=== PATIENT | male | born 1945 | race Caucasian/White ===

== ENCOUNTER 2022-05-12 08:19 | Emergency (ER) | payer OTHER ==
--- OUTSIDE RECORDS SUMMARY | 2022-05-12 08:29 | XMS REPORT | Continuity of Care Document ---
:1945 Author Organization [facility] t Address 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 0-27 ity of cancer cancer 00:00: [place] 00 Medical Branch Allergies, Adverse Reactions, Alerts Allergy Allergy Status Severity Reaction(s) Onset Inactive Treating Comm ents Source Name Type Date Date Clinician Sulfamet Propensi Active Rash 2006- Univer s hoxazole ty to 1-22 ity of -Trimeth adverse 00:00: [place] oprim reaction 00 Medical s Branch Social History Social Habit Start Date Stop Date Quantity Comments Source Exposure to 2022-01-09 2022-01-19 Not sure University of SARS-CoV-2 00:00:00 09:06:00 [facility] (event) Branch Tobacco use and 2021-10-09 2021-10-09 Never used Universit y of exposure 00:00:00 00:00:00 [facility] Alcohol intake 2021-10-09 2021-10-09 Ex-drinker University of 00:00:00 00:00:00 (finding) [facility] Sex [birth year] Universit y of 00:00:00 00:00:00 [facility] Smoking Status Start Date Stop Date Source Former smoker 2021-10-09 00:00:00 2021-10-09 00:00:00 Universi ty of [facility] Medications Ordered Filled Start Stop Current Ordering Indication Dosage Frequency Signature Comments Components Source Medication Medication Date Date Medication? Clinician (SIG) Name Name SANDRAL 50 2021- No Take As Uni vers MCG ORAL 5-13 05-13 DIR ORAL ity of TAB 10:55: 00:00 [place] 56 :00 Medical Branch LEVOXYL 50 2021- No Take As Uni vers MCG ORAL 5-13 05-13 DIR ORAL ity of TAB 10:55: 00:00 [place] 56 :00 Medical Branch METHADONE 2021- No 20mg Take 20 mg U nivers HCL 5-13 05-13 by mouth 2 ity of (METHADONE 10:55: 00:00 (two) [place] ORAL) 31 :00 times Medical daily. Branch METHADONE 2021- No 20mg Take 20 mg U nivers HCL 5-13 05-13 by mouth 2 ity of (METHADONE 10:55: 00:00 (two) [place] ORAL) 31 :00 times Medical daily. Branch pregabalin 2021- No pregabalin Univers 75 mg 5-13 05-13 75 mg ity of capsule 10:55: 00:00 capsule [place] 09 :00 Medical Branch pregabalin 2021- No pregabalin Univers 75 mg 5-13 05-13 75 mg ity of capsule 10:55: 00:00 capsule [place] 09 :00 Medical Branch orphenadrin 2021- No orphenadri Univers e 100 mg SR 5- 05-13 ne citrate i ty of tablet 10:54: 00:00 ER 100 mg [place] 57 :00 tablet,ext Medical ended Branch release Take 1 tablet every 12 hours by oral route for 30 days. orphenadrin 2021- No orphenadri Univers e 100 mg SR 01-19 ne citrate i ty of tablet 10:54: 00:00 ER 100 mg [place] 57 :00 tablet,ext Medical ended Branch release Take 1 tablet every 12 hours by oral route for 30 days. cyclobenzap 2021- No cyclobenza Univers rine 10 mg 01-19 niko 10 ity of tablet 10:54: 00:00 mg tablet [place] 48 :00 Take 1 Medical tablet 3 Branch times a day by oral route as needed for 90 days. cyclobenzap 2021- No cyclobenza Univers rine 10 mg 01-19 niko 10 ity of tablet 10:54: 00:00 mg tablet [place] 48 :00 Take 1 Medical tablet 3 Branch times a day by oral route as needed for 90 days. ASPIRIN Yes Take by Univers ORAL 1-31 mouth. ity of 09:18: [address] acetaminoph Yes Take by Uni vers en (TYLENOL 1-31 mouth. ity of ORAL) 09:18: [address] CANDESARTAN Yes Take by Uni vers -HYDROCHLOR 1-31 mouth. ity of OTHIAZID 09:18: [address] MAGNESIUM Yes Take by Unive rs ORAL 1-31 mouth. ity of 09:18: [address] ASPIRIN Yes Take by Univers ORAL 1-31 mouth. ity of 09:18: [address] acetaminoph Yes Take by Uni vers en (TYLENOL 1-31 mouth. ity of ORAL) 09:18: [address] CANDESARTAN Yes Take by Uni vers -HYDROCHLOR 1-31 mouth. ity of OTHIAZID 09:18: [address] MAGNESIUM 0 Yes Take by Unive rs ORAL 1-31 mouth. ity of 09:18: [address] finasteride 2021- No 5mg Take 1 Tab Univers (PROSCAR) 5 01-20 by mouth ity of mg tablet 00:00: 00:00 daily. [place] 00 Medical Branch finasteride No 5mg Take 1 Tab Univers (PROSCAR) 5 5-14 -13 by mouth ity of mg tablet 00:00: 00:00 daily. 00 : Medical Branch maalox/diph No 10mL Take 10 mL Univers enhydrAMINE 919 05-13 by mouth ity of :lidocaine2 00:00: 00:00 as needed [place] % viscous 00 :00 for Pain Medica l 1:1:1 (oral Branch (COMPOUNDED pain). ) suspension maalox/diph No 10mL Take 10 mL Univers enhydrAMINE 05-28 05-13 by mouth ity of :lidocaine2 00:00: 00:00 as needed [place] % viscous 00 :00 for Pain Medica l 1:1:1 (oral Branch (COMPOUNDED pain). ) suspension OMEPRAZOLE No one tab Uni vers 40 MG ORAL 2-13 orally ity of CPDR 00:00: 00:00 twice [place] 00 :00 daily, 30 Medical minutes Branch before meals OMEPRAZOLE No one tab Uni vers 40 MG ORAL 2- 05-13 orally ity of CPDR 00:00: 00:00 twice [place] 00 :00 daily, 30 Medical minutes Branch before meals Vital Signs Vital Name Observation Time Observation Value Comments Source Systolic blood 2022-01-19 15:33:00 136 mm[Hg] [facility] pressure [facility] Diastolic blood 2022-01-19 15:33:00 77 mm[Hg] [facility] Heart rate 2022-01-19 15:32:00 63 /min [facility] Body height 2022-01-19 15:32:00 180.3 cm [facility] Body weight 2022-01-19 15:32:00 87.998 kg [facility] BMI 2022-01-19 15:32:00 27.06 kg/m2 [facility] Oxygen saturation 2022-01-19 15:32:00 97 /min [facility] in Arterial blood Medical Br anch by Pulse oximetry Procedures This patient has no known procedures. Encounters Start End Encounter Admission Attending Care Care Encounter Source Date/Time Date/Time Type Type Clinicians Facility Department ID 2022-04-04 Outpatient [facility] [id number] Common 14:49:02 [facility] 2021-10-04 Outpatient [facility] [id number] Common 13:52:03 [id number] [facility] 2021-10-04 Outpatient Anthony [facility] [id number] Common 13:36:31 Yoana [id number] [facility] 2022-01-19 2022-01-19 Office Jostin [facility] [id number] Univers 10:40:00 11:36:02 Visit [facility] [id number] Amaya [id number] Dylan as ARCHANA?BLEA [id number] [place] alex NUÑEZ [facility] [place] [facility] Results This patient has no known results.
[2022-05-12] MEDS ORDERED: LIDOCAINE 1% W/EPI 1:100,000 MDV 50 ML VIAL ONE (08:57)
[2022-05-12] MEDS ORDERED: BUPIVACAINE 0.5% PF 10 ML VIAL ONE (08:57)
--- NOTE | 2022-05-12 09:26 | RAD REPORT ---
EXAM DESCRIPTION: RAD - Tib Fib Right - 05/12/2022 9:07 am CLINICAL HISTORY: Possible FB COMPARISON: None FINDINGS/IMPRESSION: No acute fracture. No malalignment. No significant focal degenerative changes. No foreign body. Laceration at the level of the mid to distal tibia.
[2022-05-12] MEDS ORDERED: CEPHALEXIN 250 MG CAP ONE (10:05)
--- NOTE | 2022-05-12 10:17 | EDPHYS ---
Physician Documentation [facility] Name: Andrea Hubbard Age: 77 yrs Sex: Male : 1945 Arrival Date: 05/12/2022 Time: 08:20 Bed 20 Private MD: ED Physician Erasmo Elaine HPI: 05/12 08:45 This 77 yrs old Male presents to ER via Ambulatory with complaints of Dog Bite. kdr 08:45 The patient was bitten on the right ankle, by a dog, while playing. Onset: The kdr symptoms/episode began/occurred suddenly, just prior to arrival. Animal information: The animal was reported to appear healthy. Animal's vaccinations are up to date. The animal is known and can be quarantined, Animal control has been notified. Secondary to the bite the patient reports a laceration, that is deep, irregular shaped, ragged, 4 cm(s), pain. Associated signs and symptoms: The patient has no apparent associated signs or symptoms. Severity of symptoms: At their worst the symptoms were mild, in the emergency department the symptoms are unchanged. The patient has not experienced similar symptoms in the past. The patient has not recently seen a physician. 08:50 Dog is well-known to the patient. Patient states that the dog was not specifically kdr trying to bite him but was playing with another dog and accidentally bit his leg.. Historical: - Allergies: 08:31 No Known Allergies; iw - Home Meds: 08:31 None [Active]; iw - PMHx: 08:31 Arthritis; iw - PSHx: 08:31 cardiac stent; iw - Immunization history:: Adult Immunizations Last tetanus immunization: unknown. - Social history:: Smoking status: Patient denies any tobacco usage or history of. ROS: 08:45 Constitutional: Negative for fever, chills, and weight loss, Eyes: Negative for injury, kdr pain, redness, and discharge, ENT: Negative for injury, pain, and discharge, Neck: Negative for injury, pain, and swelling, Cardiovascular: Negative for chest pain, palpitations, and edema, Respiratory: Negative for shortness of breath, cough, wheezing, and pleuritic chest pain, Abdomen/GI: Negative for abdominal pain, nausea, vomiting, diarrhea, and constipation, Back: Negative for injury and pain, : Negative for injury, bleeding, discharge, and swelling, MS/Extremity: Negative for injury and deformity, Neuro: Negative for headache, weakness, numbness, tingling, and seizure activity. Psych: Negative for depression, anxiety, suicide ideation, homicidal ideation, and hallucinations, Allergy/Immunology: Negative for hives, rash, and allergies, Endocrine: Negative for neck swelling, polydipsia, polyuria, polyphagia, and marked weight changes, Hematologic/Lymphatic: Negative for swollen nodes, abnormal bleeding, and unusual bruising. 08:45 Skin: Positive for laceration(s). Exam: 08:45 Constitutional: This is a well developed, well nourished patient who is awake, alert, kdr and in no acute distress. 08:45 Skin: injury, laceration(s), the wound is approximately 4 cm(s), with a depth of 1 cm(s), of the right ankle. Vital Signs: 08:29 BP 178 / 88; Pulse 65; Resp 16; Temp 98.2; Pulse Ox 99% on R/A; iw Laceration: 10:26 Wound Repair of 4cm ( 1.6in ) subcutaneous laceration to right ankle and left leg. kdr Distal neuro/vascular/tendon intact. Anesthesia: Local anesthetic administered with 5 mls of 1% lidocaine w/ Epi, Local anesthetic administered with 1% lidocaine, Local anesthetic administered with 5 mls of 0.5% marcaine. Wound prep: Extensive cleansing by nurse by me, Wound irrigation by nurse by me, Wound explored, Copious irrigation. Skin closed with 5 4-0 Prolene using simple sutures and sterile technique. Dressed with Bacitracin, Kerlix, Viky, non-adherent dressing. Patient tolerated well. MDM: 10:17 Patient medically screened. kdr 10:29 Data reviewed: vital signs, nurses notes. Counseling: I had a detailed discussion with kdr the patient and/or guardian regarding: the historical points, exam findings, and any diagnostic results supporting the discharge/admit diagnosis, lab results, radiology results, the need for outpatient follow up. 05/12 08:49 Order name: Tib Fib Right XRAY; Complete Time: 09:40 kdr 05/12 08:42 Order name: Suture Tray Setup; Complete Time: 08:59 kdr 05/12 08:42 Order name: Dressing - Wound; Complete Time: 08:58 kdr 05/12 08:42 Order name: Gloves, Sterile; Complete Time: 08:58 kdr 05/12 08:42 Order name: Prolene, Sutures: 4-0 Big needle; Complete Time: 08:58 kdr 05/12 08:42 Order name: Setup Suture Tray; Complete Time: 08:58 kdr Administered Medications: 09:52 Drug: Bupivacaine (0.5 %) 5 ml {Note: given by provider.} Volume: 10 ml; Route: mb8 Infiltration; 09:52 Drug: Lidocaine-Epinephrine -1%: (1:100,000) 5 ml {Note: given by provider.} Volume: 20 mb8 ml; Route: Infiltration; 10:17 Drug: KeFLEX (cephalexin) 500 mg Route: PO; mb8 10:35 Follow up: Response: No adverse reaction mb8 10:18 Drug: Tetanus-Diphtheria Toxoid Adult 0.5 ml {Spinning [employer]: [employer] ([employer]). Exp: mb8 12/08/2022. Lot #: [id number]. } Route: IM; Site: right deltoid; 10:35 Follow up: Response: No adverse reaction mb8 Disposition Summary: 05/12/22 10:17 Discharge Ordered Location: Home kdr Problem: new kdr Symptoms: have improved kdr Condition: Stable kdr Diagnosis - Bitten by dog kdr Followup: kdr - With: Private Physician - When: 2 - 3 days - Reason: If symptoms return, Further diagnostic work-up, Recheck today's complaints, Continuance of care, Re-evaluation by your physician Discharge Instructions: - Discharge Summary Sheet kdr - Animal Bite, Adult, [id number] kdr Forms: - Medication Reconciliation Form kdr - Thank You Letter kdr - Antibiotic Education kdr - Prescription Opioid Use kdr Prescriptions: - Cephalexin 500 mg Oral Capsule - take 1 capsule by ORAL route every 6 hours for 7 days; 28 capsule; Refills: 0, kdr Product Selection Permitted - Tylenol-Codeine #3 300 mg-30 mg Oral - take 1 tablet by ORAL route every 4-6 hours As needed; 12 tablet; Refills: 0, kdr Product Selection Permitted Signatures: Dispatcher [employer] Erasmo Aldrich MD MD kdr Aundrea Stallworth RN RN iw Dwayne Muro RN RN mb8 Corrections: (The following items were deleted from the chart) 08:31 08:31 PSHx: None; iw iw
--- NOTE | 2022-05-12 10:17 | ER ---
Nurse's Notes [facility] Name: Andrea Hubbard Age: 77 yrs Sex: Male : 1945 Arrival Date: 05/12/2022 Time: 08:20 Bed 20 Private MD: Diagnosis: Bitten by dog Presentation: 05/12 08:29 Chief complaint: Patient states: I was walking my two dogs and the neighbor dog came iw out and bit me on my right ankle , happened this morning. Coronavirus screen: At this time, the client does not indicate any symptoms associated with coronavirus-19. Ebola Screen: Patient negative for fever greater than or equal to 101.5 degrees Fahrenheit, and additional compatible Ebola Virus Disease symptoms Patient denies exposure to infectious person. Patient denies travel to an Ebola-affected area in the 21 days before illness onset. No symptoms or risks identified at this time. Initial Sepsis Screen: Does the patient meet any 2 criteria? No. Patient's initial sepsis screen is negative. Does the patient have a suspected source of infection? No. Patient's initial sepsis screen is negative. Risk Assessment: Do you want to hurt yourself or someone else? Patient reports no desire to harm self or others. Onset of symptoms was May 12, 2022. 08:29 Method Of Arrival: Ambulatory iw 08:29 Acuity: ZEN 3 Triage Assessment: 10:33 Bite description: bite sustained to right leg by a dog, animal information: mb8 vaccination(s) is current. General: Appears in no apparent distress. uncomfortable, Behavior is calm, cooperative, appropriate for age. Historical: - Allergies: 08:31 No Known Allergies; iw - Home Meds: 08:31 None [Active]; iw - PMHx: 08:31 Arthritis; iw - PSHx: 08:31 cardiac stent; iw - Immunization history:: Adult Immunizations Last tetanus immunization: unknown. - Social history:: Smoking status: Patient denies any tobacco usage or history of. Screenin:01 Abuse screen: Denies threats or abuse. Denies injuries from another. Nutritional mb8 screening: No deficits noted. Tuberculosis screening: No symptoms or risk factors identified. Fall Risk None identified. Assessment: 08:59 Pain: Complains of pain in right ankle. Pain: Pain does not radiate. Pain currently is mb8 6 out of 10 on a pain scale. Quality of pain is described as aching. Derm: Skin is intact, Skin is pink, warm \T\ dry. Wound noted Wound is multiple small puncture wounds to right lower leg from a dog bit. 09:31 Reassessment: No changes from previously documented assessment. Patient and/or family mb8 updated on plan of care and expected duration. Pain level reassessed. Patient is alert, oriented x 3, equal unlabored respirations, skin warm/dry/pink. Vital Signs: 08:29 BP 178 / 88; Pulse 65; Resp 16; Temp 98.2; Pulse Ox 99% on R/A; iw ED Course: 08:20 Patient arrived in ED. as 08:31 Triage completed. iw 08:32 Arm band placed on. iw 08:34 Erasmo Elaine MD is Attending Physician. kdr 08:43 called the [facility] to report the dog bite/ per Olga patient is to call the [facility] sheriff's office when he get's home and they will send the occupational medicine officer over to make a report. 08:45 Dwayne Muro RN is Primary Nurse. mb8 08:50 Wound care: to Dog bite located on right leg and right ankle was cleaned with irrigated mb8 with Patient tolerated well. 08:55 X-ray(s) taken. mb8 09:01 Awaiting radiology results. mb8 09:01 Patient has correct armband on for positive identification. mb8 09:01 No provider procedures requiring assistance completed. Patient did not have IV access mb8 during this emergency room visit. 09:09 Tib Fib Right XRAY In Process Unspecified. 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 Exp: mb8 12/08/2022. Lot #: [id number]. } Route: IM; Site: right deltoid; 10:35 Follow up: Response: No adverse reaction david Medication: 10:34 Vaccine Information Statement (VIS) provided today. Questions and/or concerns david addressed. VIS edition date: May 12, 2022. Outcome: 10:17 Discharge ordered by . kdr 10:34 Discharged to home ambulatory, with family. mbTima 10:34 Condition: stable 10:34 Discharge instructions given to patient, Instructed on discharge instructions, follow up and referral plans. no drinking with medication, no driving heavy equipment, medication usage, wound care, Demonstrated understanding of instructions, follow-up care, medications, wound care, Prescriptions given X 1. 10:35 Patient left the ED. david Signatures: Dispatcher [employer] EDMS Erasmo Elaine MD MD kdr Martinez, Amelia as Williams, Irene, JOSE RN iw Pily Lee Michael, RN RN mb8 Corrections: (The following items were deleted from the chart) 08:31 08:31 PSHx: None; [facility]
[2022-05-12 10:43] VITALS: BP 178/88; TEMP 98.2; O2SAT 99
== END 2022-05-12 10:35 | disposition home or self-care (01) ==
LOC: ER 08:19
PROC: 0JQN0ZZ Repair Right Lower Leg Subcutaneous Tissue and Fascia, Open Approach (ICD-10-PCS; principal; 2022-05-12)
DX: S91.011A Laceration without foreign body, right ankle, initial encounter (principal); W54.0XXA Bitten by dog, initial encounter; Z23 Encounter for immunization; Z95.818 Presence of other cardiac implants and grafts
CPT/HCPCS: 90471; 99284

== ENCOUNTER 2022-10-14 17:36 | Observation (INO) | payer OTHER ==
--- OUTSIDE RECORDS SUMMARY | 2022-10-14 17:38 | XMS REPORT | Continuity of Care Document ---
:1945 Author Organization [facility] t Address [address] [place] [address] Care Team Providers Name Role Phone Ricardo Adi Amezcua Primary Care Physician Yoana Cruz Attending Clinician Unavailable TRAY FRANKEL Attending Clinician Unavailable TRAY FRANKEL Attending Clinician Unavailable Tray Frankel MD Attending Clinician MICHELLE PATTERSON Attending Clinician Unavailable Leonardo Davidson MD, [place] Attending Clinician GRACE HAYDEN Attending Clinician Unavailable Grace Hayden MD Attending Clinician Doctor Unassigned, [place] Attending Clinician Unavailable TRAY FRANKEL Admitting Clinician Unavailable Payers Payer Name Policy Type Policy Number Effective Date Expiration Date S [facility] [id number] 2021 [facility] 00:00:00 PPO Problems Condition Condition Condition Status Onset Resolution Last Treating Co mments Source Name Details Category Date Date Treatment Clinician Date 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 0-27 ity of cancer cancer 00:00: [place] 00 Medical Branch Allergies, Adverse Reactions, Alerts Allergy Allergy Status Severity Reaction(s) Onset Inactive Treating Comm ents Source Name Type Date Date Clinician Estefania Bell Active Rash Univer s hoxazole ty to 09-30 ity of -[place] adverse 00:00: [place] oprim reaction 00 Medical s Branch Social History Social Habit Start Date Stop Date Quantity Comments Source Exposure to 2022-01-09 2022-01-19 Not sure [facility] SARS-CoV-2 00:00:00 09:06:00 [facility] (event) Branch Tobacco use and 2021-10-09 2021-10-09 Never used Universit y of exposure 00:00:00 [facility] Alcohol intake 2021-10-09 2021-10-09 Ex-drinker [facility] 00:00:00 00:00:00 [facility]finding[facility] Sex Ass[birth year] Universit y of 00:00:00 [facility]:00:00 [facility] Smoking Status Start Date Stop Date Source Former smoker 2021-10-09 00:00:00 2021-10-09 00:00:00 [facility] Medications Ordered Filled Start Stop Current Ordering Indication Dosage Frequency Signature Comments Components Source Medication Medication Date Date Medication? Clinician (SIG) Name Name LEVOXYL 50 2021- No Take As Uni vers MCG ORAL 5-13 05-13 DIR ORAL ity of TAB 10:55: 00:00 [place] 56 :00 Medical Branch LEVOXYL 50 2021- No Take As Uni vers MCG ORAL 5-13 05-13 DIR ORAL ity of TAB 10:55: 00:00 [place] 56 :00 Medical Branch METHADONE 2021- No 20mg Take 20 mg U nivers HCL 5-13 05-13 by mouth 2 ity of (METHADONE 10:55: 00:00 (two) [place] ORAL) 31 :00 times Medical daily. Branch METHADONE 2021- No 20mg Take 20 mg U nivers HCL 5-13 05-13 by mouth 2 ity of (METHADONE 10:55: 00:00 (two) [place] ORAL) 31 :00 times Medical daily. Branch pregabalin 2021- No pregabalin Univers 75 mg 5-13 - 75 mg ity of capsule 10:55: 00:00 capsule [place] 09 :00 Medical Branch pregabalin 2021- No pregabalin Univers 75 mg 5-13 - 75 mg ity of capsule 10:55: 00:00 capsule [place] 09 :00 Medical Branch orphenadrin 2021- No orphenadri Univers e 100 mg SR 01-19 ne citrate i ty of tablet 10:54: 00:00 ER 100 mg [place] 57 :00 tablet,ext Medical ended Branch release Take 1 tablet every 12 hours by oral route for 30 days. orphenadrin 2021- No orphenadri Univers e 100 mg SR -01-19 ne citrate i ty of tablet 10:54: 00:00 ER 100 mg [place] 57 :00 tablet,ext Medical ended Branch release Take 1 tablet every 12 hours by oral route for 30 days. cyclobenzap 2021- No cyclobenza Univers rine 10 mg -01-19 niko 10 ity of tablet 10:54: 00:00 mg tablet [place] 48 :00 Take 1 Medical tablet 3 Branch times a day by oral route as needed for 90 days. cyclobenzap 2021- No cyclobenza Univers rine 10 mg -01-19 niko 10 ity of tablet 10:54: 00:00 mg tablet [place] 48 :00 Take 1 Medical tablet 3 Branch times a day by oral route as needed for 90 days. ASPIRIN Yes Take by Univers ORAL 1-31 mouth. ity of 09:18: [address] acetaminoph Yes Take by Uni vers en (TYLENOL 1-31 mouth. ity of ORAL) 09:18: [address] CANDESARTAN Yes Take by Uni vers -HYDROCHLOR 1-31 mouth. ity of OTHIAZID 09:18: [address] MAGNESIUM 0 Yes Take by Unive rs ORAL 1-31 mouth. ity of 09:18: [address] ASPIRIN 0 Yes Take by Univers ORAL 1-31 mouth. ity of 09:18: [address] acetaminoph Yes Take by Uni vers en (TYLENOL 1-31 mouth. ity of ORAL) 09:18: [address] CANDESARTAN Yes Take by Uni vers -HYDROCHLOR 1-31 mouth. ity of OTHIAZID 09:18: [place] [address] [facility] [place] MAGNESIUM Yes Take by Unive rs ORAL -31 mouth. ity of 09:18: [place] [address] [facility] [place] finasteride 2021- No 5mg Take 1 Tab Univers (PROSCAR) 5 5-14 05-13 by mouth ity of mg tablet 00:00: 00:00 daily. [place] 00 : Medical Branch finasteride 2021- No 5mg Take 1 Tab Univers (PROSCAR) 5 5-14 05-13 by mouth ity of mg tablet 00:00: 00:00 daily. [place] 00 :00 Medical Branch maalox/diph 2021- No 10mL Take 10 mL Univers enhydrAMINE 9-19 05-13 by mouth ity of :lidocaine2 00:00: 00:00 as needed [place] % viscous 00 :00 for Pain Medica l 1:1:1 (oral Branch (COMPOUNDED pain). ) suspension maalox/diph 2021- No 10mL Take 10 mL Univers enhydrAMINE 9-19 05-13 by mouth ity of :lidocaine2 00:00: 00:00 as needed [place] % viscous 00 :00 for Pain Medica l 1:1:1 (oral Branch (COMPOUNDED pain). ) suspension OMEPRAZOLE 2021- No one tab Uni vers 40 MG ORAL 2-08 05-13 orally ity of CPDR 00:00: 00:00 twice [place] 00 :00 daily, 30 Medical minutes Branch before meals OMEPRAZOLE 2021- No one tab Uni vers 40 MG ORAL 2-08 05-13 orally ity of CPDR 00:00: 00:00 twice [place] 00 :00 daily, 30 Medical minutes Branch before meals Vital Signs Vital Name Observation Time Observation Value Comments Source Systolic blood 2022-01-19 15:33:00 136 mm[Hg] Univer sity [facility] Diastolic blood 2022-01-19 15:33:00 77 [facility]Hg[facility] pressure [facility] Heart rate 2022-01-19 15:32:00 63 /min [facility] Body height 2022-01-19 15:32:00 180.3 cm [facility] Body weight 2022-01-19 15:32:00 87.998 kg [facility] BMI 2022-01-19 15:32:00 27.06 kg/m2 [facility] Oxygen saturation 2022-01-19 15:32:00 97 /min [facility] in Arterial blood Medical Br anch by Pulse oximetry Procedures This patient has no known procedures. Encounters Start End Encounter Admission Attending Care Care Encounter Source Date/Time Date/Time Type Type Clinicians Facility Department ID 2022-04-04 Outpatient [facility] [id number] Common 14:49:02 [id number] [facility] 2021-10-04 Outpatient [facility] [id number] Common 13:52:03 [id number] [facility] 2021-10-04 Outpatient Anthony [facility] [id number] Common 13:36:31 Yoana 7[address]82 [facility] 2022-01-19 2022-01-19 Outpatient TRAY PRICE [facility] [id number] [facility] 10:40:00 11:36:02 TRAY FRANKEL [facility] 2022-01-19 2022-01-19 [facility] [id number] [facility] 10:40:00 11:36:02 Visit [facility] [id number] [facility] [id number] Dylan as ARCHANA?BLEA [id number] [address] MEDICAL OFFICE BUILDING 2022-01-19 2022-01-19 Outpatient TRAY PRICE [facility] [id number] Univers 10:40:00 10:40:00 TRAY FRANKEL [facility] 2022-01-08 2022-01-08 Outpatient Agueda PATTERSON [facility] [id number] Univers 09:40:23 23:59:00 MICHELLE [facility] 2022-01-08 2022-01-08 [facility] [id number] Univers 09:40:23 23:59:00 [facility] [id number] [id number] [id number] [facility] 038 Branch OFFICE BUILDING 2021-11-27 2021-11-27 Patient VLAD FrankelIT [id number] Univers 00:00:00 00:00:00 Secure Msg Tray [facility] [id number] ity of [id number] [id number] [place] [id number] [place] 2021-11-21 2021-11-21 Outpatient Agueda HAYDEN [facility] [id number] Univers 00:00:00 00:00:00 GRACE [facility] 2021-11-17 2021-11-17 Outpatient TRAY PRICE [facility] [id number] Univers 09:20:00 09:57:43 TRAY FRANKEL stella [facility] 2021-11-13 2021-11-13 Outpatient TRAY PRICE [facility] [id number] Univers 11:36:07 23:59:00 TRAY FRANKEL stella [facility] 2021-11-13 2021-11-13 [facility] [id number] Univers 11:30:00 23:59:00 Encounter Tray [place] [id number] ity of [place] [id number] [place] [id number] [facility] 804 Branch 2021-11-06 2021-11-06 Patient ISA Frankel [id number] Univers 00:00:00 00:00:00 Secure Msg Tray [facility] [id number] ity of [id number] [id number] [place] [id number] [place] 2021-10-25 2021-10-25 Patient Jostin [facility] [id number] Univers 00:00:00 00:00:00 Secure Msg Tray [facility] [id number] ity of [place] [id number] Dylan as ARCHANA?BLEA [id number] Il mckayid JACKELINE[address] OFFICE [facility] 2021-10-18 2021-10-18 [facility] [id number] Univers 13:57:26 23:59:00 Encounter Grace ESTESTON [id number] [facility] [id number] [id number] [address] 2021-10-18 2021-10-18 [facility] [id number] Univers 13:57:06 23:59:00 Encounter Grace BRADEN [id number] [facility] [id number] [id number] [address] 2021-10-18 2021-10-18 Outpatient R [facility] [id number] Univers 13:57:06 23:59:00 GRACE ity o [facility] 2021-10-10 2021-10-10 Office Tray Frankel [facility] [id number] Univers 10:00:00 11:15:52 Visit Grace Hayden [facility] [id number] ity of [place] [id number] Dylan as ARCHANA?BLEA [id number] [facility] JACKELINE[address] OFFICE [facility] 2021-10-10 2021-10-10 Outpatient R [facility] [id number] Univers 10:00:00 [facility]:15:[facility] 2021-10-10 2021-10-10 Outpatient R [facility] [id number] Univers 10:00:00 10:00:00 QIAYURY ity o [facility] 2021-10-10 2021-10-10 Orders Doctor SHAVER [id number] Univers 00:00:00 00:00:00 Only Unassigned, RESHMA [id number] ity of [place] [facility] [id number] Dylan as [id number] [facility] 009 Branch 2021-10-09 2021-10-09 Outpatient R [facility] [id number] Univers 08:30:00 23:59:00 [facility]ACE [facility] 2021-10-09 2021-10-09 Hospital [facility] [id number] Univers 08:30:00 23:59:00 Encounter Grace BRADEN [id number] ity [id number] [id number] Il dical NAL 846 [facility] 2021-10-09 2021-10-09 Office [facility] [id number] Univers 09:40:00 10:00:00 Visit Grace BRADEN [id number] ity [place] [id number] [id number] Il dical NAL 059 [facility] 2021-10-09 2021-10-09 Outpatient R [facility] [id number] Univers 09:40:00 09:40:00 [facility]ACE [facility] 2021-10-09 2021-10-09 Orders Doctor SHAVER 1.2.840.114 [id number] Univers 00:00:00 00:00:00 Only Unassigned, RESHMA [id number] ity of [place] [facility] [id number] Dylan as [id number] [place] [address] Branch Results This patient has no known results.
--- NOTE | 2022-10-14 18:04 | RAD REPORT ---
EXAM DESCRIPTION: CT - Ct Stroke Brain Wo Cont - 10/14/2022 5:53 pm CLINICAL HISTORY: cva COMPARISON: none TECHNIQUE: Computed axial tomography of the head was obtained. All CT scans are performed using dose optimization technique as appropriate and may include automated exposure control or mA/KV adjustment according to patient size. FINDINGS: An intracranial bleed is not seen . The ventricles are normal in caliber. No extra-axial fluid collection is noted. No significant hypodensity within the brain Fluid within the sinuses/ mastoids is not seen. IMPRESSION: No acute intracranial abnormality is seen.If patient's symptoms persist MRI of the brai n would be recommended. Regino of the emergency room was notified at 5:47 p.m. October 14, 2022
[2022-10-14 18:11] LABS: Absolute Lymphocytes (CBC) 1.7 K/uL (0.7-4.9); Hematocrit 41.4 % (39.6-49.0); Lymphocytes % 21.9 % (15.3-44.8); MCV 94.3 fL (80-100); MPV 10.7 fL (7.6-11.3); RBC Red Blood Cell Count 4.39 M/uL (4.33-5.43)
--- NOTE | 2022-10-14 18:17 | EDPHYS ---
Physician Documentation [facility] Name: Andrea Hubbard Age: 77 yrs Sex: Male : 1945 Arrival Date: 10/14/2022 Time: 17:37 Bed 17 Private MD: ED Physician Erasmo Elaine HPI: 10/14 19:12 This 77 yrs old Male presents to ER via EMS with complaints of S/S of Possible Stroke. kdr 19:13 Patient was brought to the emergency department by EMS for possible stroke. He was kdr sitting with friends at a picnic table and all of a sudden he collapsed and became poorly responsive. Friends or relatives state that he was slumping over and he may have had some right facial droop and altered speech. This lasted for a few minutes and then he slowly regained his baseline. EMS states by the time they arrived he was back to his baseline. Patient presents to the ED at baseline without any focal complaints other than chronic total body pain. Onset: The symptoms/episode began/occurred suddenly, just prior to arrival. Severity of symptoms: At their worst the symptoms were incapacitating in the emergency department the symptoms have resolved. The patient has not experienced similar symptoms in the past. The patient has not recently seen a physician. Historical: - Allergies: 18:08 No Known Allergies; ld1 - PMHx: 18:08 Arthritis; ld1 - PSHx: 18:08 cardiac stent; ld1 - Immunization history:: Adult Immunizations up to date, Client reports receiving the 2nd dose of the Covid vaccine. - Social history:: Smoking status: Patient denies any tobacco usage or history of. Patient/guardian denies using alcohol. ROS: 19:13 Constitutional: Negative for fever, chills, and weight loss, Eyes: Negative for injury, kdr pain, redness, and discharge, ENT: Negative for injury, pain, and discharge, Neck: Negative for injury, pain, and swelling, Cardiovascular: Negative for chest pain, palpitations, and edema, Respiratory: Negative for shortness of breath, cough, wheezing, and pleuritic chest pain, Abdomen/GI: Negative for abdominal pain, nausea, vomiting, diarrhea, and constipation, Back: Negative for injury and pain, : Negative for injury, bleeding, discharge, and swelling, MS/Extremity: Negative for injury and deformity, Skin: Negative for injury, rash, and discoloration, Psych: Negative for depression, anxiety, suicide ideation, homicidal ideation, and hallucinations, Allergy/Immunology: Negative for hives, rash, and allergies, Endocrine: Negative for neck swelling, polydipsia, polyuria, polyphagia, and marked weight changes, Hematologic/Lymphatic: Negative for swollen nodes, abnormal bleeding, and unusual bruising. 19:13 Neuro: Positive for altered mental status, dizziness, gait disturbance, speech changes, weakness. Exam: 19:13 Constitutional: This is a well developed, well nourished patient who is awake, alert, kdr and in no acute distress. Head/Face: Normocephalic, atraumatic. Eyes: Pupils equal round and reactive to light, extra-ocular motions intact. Lids and lashes normal. Conjunctiva and sclera are non-icteric and not injected. Cornea within normal limits. Periorbital areas with no swelling, redness, or edema. Neck: Trachea midline, no thyromegaly or masses palpated, and no cervical lymphadenopathy. Supple, full range of motion without nuchal rigidity, or vertebral point tenderness. No Meningismus. Chest/axilla: Normal chest wall appearance and motion. Nontender with no deformity. No lesions are appreciated. Cardiovascular: Regular rate and rhythm with a normal S1 and S2. No gallops, murmurs, or rubs. Normal PMI, no JVD. No pulse deficits. Respiratory: Lungs have equal breath sounds bilaterally, clear to auscultation and percussion. No rales, rhonchi or wheezes noted. No increased work of breathing, no retractions or nasal flaring. Abdomen/GI: Soft, non-tender, with normal bowel sounds. No distension or tympany. No guarding or rebound. No evidence of tenderness throughout. Back: No spinal tenderness. No costovertebral tenderness. Full range of motion. Skin: Warm, dry with normal turgor. Normal color with no rashes, no lesions, and no evidence of cellulitis. MS/ Extremity: Pulses equal, no cyanosis. Neurovascular intact. Full, normal range of motion. Psych: Awake, alert, with orientation to person, place and time. Behavior, mood, and affect are within normal limits. 19:13 Neuro: Orientation: is normal, Mentation: is normal, Memory: is normal, Motor: is normal, Sensation: is normal. Vital Signs: 18:04 BP 161 / 92; Pulse 65; Resp 22; Temp 97.6(O); Pulse Ox 97% on R/A; Height 5 ft. 8 in. ld1 (172.72 cm); Pain 8/10; 19:00 BP 164 / 74; Pulse 70; Resp 18; Pulse Ox 100% on R/A; Weight 92.99 kg; ld1 19:35 BP 169 / 88; Pulse 82; Resp 17; Pulse Ox 99% on R/A; lg3 02 03:59 BP 143 / 89 Supine; Pulse 94; ke1 03:59 BP 137 / 105 Sitting; Pulse 101; ke1 04:00 BP 113 / 76 Standing; Pulse 124; ke1 10/14 19:00 Body Mass Index 31.17 (92.99 kg, 172.72 cm) ld1 NIH Stroke Scale Scores: 10/14 18:10 NIHSS Score: 0 ld1 19:00 NIHSS Score: 0 ld1 19:36 NIHSS Score: 0 lg3 MDM: 18:17 Patient medically screened. kdr 19:13 Data reviewed: vital signs, nurses notes, lab test result(s), radiologic studies. kdr Management of patient was discussed with the following: Hospitalist: Ganesh Hensley. 19:24 ED course: Patient states that he has chronic pain for more than 10 years and that he kdr cannot get comfortable in the hospital and is insisting that he go home. I offered to try to address his pain which is reflected in the orders that I just put in the chart. If that is not satisfactory then he may decide to go AGAINST MEDICAL ADVICE. I have informed the hospitalist and the attending emergency physician of the current status the chart and the patient and that he is technically admitted. The family certainly expressed some concern about him leaving the hospital and we all attempted to convince the patient that an overnight stay would be beneficial given that this was either a cardiac event or a neurologic event in either case he warrants admission and an MRI and further evaluation. In any case the patient was most insisted on leaving and his final disposition if other than the admission to the hospitalist service will be determined later this evening.. 10/14 17:44 Order name: Basic Metabolic Panel; Complete Time: 18:59 kdr 10/14 17:44 Order name: CBC with Diff; Complete Time: 18:59 kdr 02/ 17:44 Order name: Hepatic Function; Complete Time: 18:59 kdr 02 17:44 Order name: High Sensitivity Troponin; Complete Time: 18:59 kdr 02 17:44 Order name: Magnesium; Complete Time: 18:59 kdr 02 17:44 Order name: Protime (+inr); Complete Time: 18:59 kdr 02 17:44 Order name: Ptt, Activated; Complete Time: 18:59 kdr 02 17:46 Order name: SARS RAPID; Complete Time: 18:59 kj1 10/14 18:14 Order name: ETOH Level; Complete Time: 18:59 kdr 02 18:15 Order name: Glucose, Ancillary Testing; Complete Time: 18:59 EDMS 02 23:38 Order name: Troponin High Sensitivity EDMS 02 05:55 Order name: Basic Metabolic Panel EDMS 02 05:55 Order name: Troponin High Sensitivity EDMS 02 05:55 Order name: T4 Free EDMS 10/14 17:44 Order name: CT Stroke Brain w/o Contrast; Complete Time: 18:59 iw 10/14 17:44 Order name: Stroke CXR 1 View; Complete Time: 18:59 kdr 10/14 17:44 Order name: EKG; Complete Time: 17:45 kdr 10/14 17:44 Order name: Accucheck; Complete Time: 18:12 kdr 10/14 17:44 Order name: Cardiac monitoring; Complete Time: 18:03 kdr 02 17:44 Order name: EKG - Nurse/Tech; Complete Time: 18:12 kdr 10/14 17:44 Order name: IV Saline Lock; Complete Time: 18:03 kdr 02 17:44 Order name: Labs collected and sent; Complete Time: 18:03 kdr 02 17:44 Order name: NPO; Complete Time: 18:12 kdr 02 05:55 Order name: Thyroid Stimulating Hormone EDMS 10/15 07:30 Order name: CBC with Automated Diff EDMS 10/15 09:20 Order name: US EDMS 10/14 17:44 Order name: O2 Per Protocol; Complete Time: 18:03 kdr 10/14 17:44 Order name: O2 Sat Monitoring; Complete Time: 18:03 kdr 10/14 17:44 Order name: Stroke Swallow Screen; Complete Time: 18:12 kdr 10/14 20:55 Order name: Orthostatics; Complete Time: 04:53 la1 Administered Medications: 19:35 Drug: Ativan (LORazepam) 1 mg Route: IVP; Site: right antecubital; lg3 19:35 Drug: fentaNYL (PF) 25 mcg Route: IVP; Site: right antecubital; lg3 19:35 Drug: Neurontin (gabapentin) 300 mg Route: PO; lg3 Point of Care Testing: Blood Glucose: 17:49 Blood Glucose: 97 mg/dL; ld1 Ranges: Critical Glucose Levels:Adult <50 mg/dl or >400 mg/dl <40 mg/dl or >180 mg/dl Disposition Summary: 10/14/22 18:17 Hospitalization Ordered Hospitalization Status: Observation kdr Condition: Fair kdr Problem: new kdr Symptoms: are resolved kdr Bed/Room Type: Standard kdr Provider: Juan Carlos Boss(10/14/22 20:55) la1 Location: [facility] ER HOLD(10/14/22 21:07) cg Room Assignment: ERHOLD-(10/14/22 21:07) cg Diagnosis - Slurred speech kdr - Altered mental status, unspecified kdr Forms: - Medication Reconciliation Form kdr - SBAR form kdr NIH Stroke Scale - NIH Stroke Score Date: 10/14/2022 Time: 18:10 Total Score = 0 1a. Level of Consciousness (LOC) - 0(Alert) 1b. Level of Consciousness (LOC) (Month \T\ Age) - 0(Both) 1c. LOC Commands (Open \T\ Closes Eyes/Metal Roaster) - 0(Both) 2. Best Gaze (Lateral Gaze Paresis) - 0(Normal) 3. Visual Field Loss - 0(No visual loss) 4. Facial Palsy - 0(Normal) 5a. Left Arm: Motor (10-second hold) - 0(No drift) 5b. Right Arm: Motor (10-second hold) - 0(No drift) 6a. Left Leg: Motor (5-second hold - always test supine) - 0(No drift) 6b. Right Leg: Motor (5-second hold - always test supine) - 0(No drift) 7. Limb Ataxia (finger/nose \T\ heel/al - test with eyes open) - 0(Absent) 8. Sensory Loss (pinprick arms/legs/face) - 0(Normal) 9. Best Language: Aphasia (description/naming/reading) - 0(No aphasia) 10. Dysarthria (speech clarity - read or repeat words) - 0(Normal) 11. Extinction and Inattention (visual/tactile/auditory/spatial/personal) - 0(No abnormality) Initials: ld1 NIH Stroke Scale - NIH Stroke Score Date: 10/14/2022 Time: 19:00 Total Score = 0 1a. Level of Consciousness (LOC) - 0(Alert) 1b. Level of Consciousness (LOC) (Month \T\ Age) - 0(Both) 1c. LOC Commands (Open \T\ Closes Eyes/Metal Roaster) - 0(Both) 2. Best Gaze (Lateral Gaze Paresis) - 0(Normal) 3. Visual Field Loss - 0(No visual loss) 4. Facial Palsy - 0(Normal) 5a. Left Arm: Motor (10-second hold) - 0(No drift) 5b. Right Arm: Motor (10-second hold) - 0(No drift) 6a. Left Leg: Motor (5-second hold - always test supine) - 0(No drift) 6b. Right Leg: Motor (5-second hold - always test supine) - 0(No drift) 7. Limb Ataxia (finger/nose \T\ heel/al - test with eyes open) - 0(Absent) 8. Sensory Loss (pinprick arms/legs/face) - 0(Normal) 9. Best Language: Aphasia (description/naming/reading) - 0(No aphasia) 10. Dysarthria (speech clarity - read or repeat words) - 0(Normal) 11. Extinction and Inattention (visual/tactile/auditory/spatial/personal) - 0(No abnormality) Initials: ld1 NIH Stroke Scale - NIH Stroke Score Date: 10/14/2022 Time: 19:36 Total Score = 0 1a. Level of Consciousness (LOC) - 0(Alert) 1b. Level of Consciousness (LOC) (Month \T\ Age) - 0(Both) 1c. LOC Commands (Open \T\ Closes Eyes/Metal Roaster) - 0(Both) 2. Best Gaze (Lateral Gaze Paresis) - 0(Normal) 3. Visual Field Loss - 0(No visual loss) 4. Facial Palsy - 0(Normal) 5a. Left Arm: Motor (10-second hold) - 0(No drift) 5b. Right Arm: Motor (10-second hold) - 0(No drift) 6a. Left Leg: Motor (5-second hold - always test supine) - 0(No drift) 6b. Right Leg: Motor (5-second hold - always test supine) - 0(No drift) 7. Limb Ataxia (finger/nose \T\ heel/al - test with eyes open) - 0(Absent) 8. Sensory Loss (pinprick arms/legs/face) - 0(Normal) 9. Best Language: Aphasia (description/naming/reading) - 0(No aphasia) 10. Dysarthria (speech clarity - read or repeat words) - 0(Normal) 11. Extinction and Inattention (visual/tactile/auditory/spatial/personal) - 0(No abnormality) Initials: lg3 Signatures: Dispatcher [employer] EDMS Erasmo Elaine MD MD kdr Ganesh Hensley, WOOD MODEL MAKER-C WOOD MODEL MAKER-Cla1 Maite Vu, RN RN cg Edie Sherwood, JOSE GARCIA lg3 Nancy Giordano, JOSE RN ld1 Corrections: (The following items were deleted from the chart) 17:50 17:45 CT-STROKE BRAIN W/O CONTRAST+[id number].BRZ ordered. EDMS EDMS 20:55 18:17 Irina Bishop [facility] la1 21:07 18:17 Telemetry/MedSurg (observation) [facility] 21:07 18:17 [facility]
--- NOTE | 2022-10-14 18:17 | ER ---
Nurse's Notes [facility] Name: Andrea Hubbard Age: 77 yrs Sex: Male : 1945 Arrival Date: 10/14/2022 Time: 17:37 Bed 17 Private MD: Diagnosis: Slurred speech;Altered mental status, unspecified Presentation: 10/14 18:04 Chief complaint: EMS states: toned out to patient home for generalized weakness, ld1 unsteady gait, left sided facial drooping, dizziness, headache - sudden onset at 1700. Upon arrival to ER symptoms have been resolved. Coronavirus screen: At this time, the client does not indicate any symptoms associated with coronavirus-19. Ebola Screen: No symptoms or risks identified at this time. No acute neurological deficit is noted. The patients blood glucose was checked before arriving to the hospital and was found to be normal. Initial Sepsis Screen: Does the patient meet any 2 criteria? No. Patient's initial sepsis screen is negative. Does the patient have a suspected source of infection? No. Patient's initial sepsis screen is negative. Risk Assessment: Do you want to hurt yourself or someone else? Patient reports no desire to harm self or others. Onset of symptoms was October 14, 2022 at 17:00. 18:04 Method Of Arrival: EMS: [facility] ld1 18:04 Acuity: ZEN 2 ld1 Triage Assessment: 17:49 The onset of the patients symptoms was October 14, 2022 at 17:00. General: Appears in ld1 no apparent distress. comfortable, Behavior is calm, cooperative, appropriate for age. Pain: Complains of pain in face Pain does not radiate. Pain currently is 8 out of 10 on a pain scale. Quality of pain is described as pressure, throbbing, Pain began 1 hour ago. EENT: No signs and/or symptoms were reported regarding the EENT system. Reports. Neuro: Level of Consciousness is awake, alert, obeys commands, Oriented to person, place, time, situation, Marketing Sales Supervisor are equal bilaterally Moves all extremities. Gait is steady, Speech is normal, Facial symmetry appears normal, Reports dizziness, headache weakness also reports symptoms have seemed to resolve. Cardiovascular: Capillary refill < 3 seconds Patient's skin is warm and dry. Respiratory: Airway is patent Respiratory effort is even, unlabored. 17:49 GI: Abdomen is flat, non-distended. : No signs and/or symptoms were reported ld1 regarding the genitourinary system. Derm: No signs and/or symptoms reported regarding the dermatologic system. Musculoskeletal: No signs and/or symptoms reported regarding the musculoskeletal system. Stroke Activation: Symptom onset < 3 hours Physician: Stroke Attending; Name: ; Notified At: 17:42; Arrived At: Physician: Chief Stroke Resident; Name: ; Notified At: 17:42; Arrived At: Physician: Stroke Resident; Name: ; Notified At: 17:42; Arrived At: Physician: ED Attending; Name: ; Notified At: 17:42; Arrived At: Physician: ED Resident; Name: ; Notified At: 17:42; Arrived At: Historical: - Allergies: 18:08 No Known Allergies; ld1 - PMHx: 18:08 Arthritis; ld1 - PSHx: 18:08 cardiac stent; ld1 - Immunization history:: Adult Immunizations up to date, Client reports receiving the 2nd dose of the Covid vaccine. - Social history:: Smoking status: Patient denies any tobacco usage or history of. Patient/guardian denies using alcohol. Screenin:10 [facility] ED Fall Risk Assessment (Adult) History of falling in the last 3 months, ld1 including since admission No falls in past 3 months (0 pts). Abuse screen: Denies threats or abuse. Denies injuries from another. Nutritional screening: No deficits noted. Tuberculosis screening: No symptoms or risk factors identified. 19:36 VAN Screening: Arm Drift: Patient shows no arm weakness. Patient is VAN negative. lg3 Visual Disturbance: No visual disturbance noted. Aphasia: No aphasia noted. Neglect: No neglect noted. Assessment: 18:10 VAN Scoring: Arm Drift: Patients demonstrates NO arm weakness. Patient is VAN Negative. ld1 Visual Disturbance: No visual disturbance noted. Aphasia: No aphasia noted. Patient has been NPO before screening. The patient is alert, and able to follow commands. The patient does not exhibit slurred or garbled speech. The patient is not exhibiting difficulty speaking. The patient does not exhibit difficulty understanding words. The patient is able to swallow own secretions with no drooling or need for suction. Patient tolerated one teaspoon of water. No drooling, immediate coughing, gurgling, or clearing of the throat was noted. The patient tolerated 90mL of water. No drooling, immediate coughing, gurgling, or clearing of the throat was noted. The patient passed the bedside swallow screening. Oral medications may be given as ordered. Contact Physician for further diet orders. Provider notified of bedside swallow screening results: Erasmo Elaine MD. TNKase (Tenecteplase) Screening: Indications: Treatment will start within 4.5 hours onset of symptoms: Yes. Reassessment: See triage assessment. 19:36 General: Appears in no apparent distress. comfortable, Behavior is calm, cooperative. lg3 Pain: Complains of pain in generalized body aches Is chronic. Neuro: No deficits noted. Benson Agitation-Sedation Scale (RASS): 0 - Alert and Calm Level of Consciousness is awake, alert, obeys commands, Oriented to person, place, time, situation, Marketing Sales Supervisor are equal bilaterally Moves all extremities. Full function Speech is normal, Facial symmetry appears normal. Cardiovascular: No deficits noted. Denies chest pain, shortness of breath, Capillary refill < 3 seconds Clubbing of nail beds is absent JVD is absent Patient's skin is warm and dry. Chest pain is denied. Respiratory: No deficits noted. Airway is patent Trachea midline Respiratory effort is even, unlabored, Respiratory pattern is regular, symmetrical. GI: No deficits noted. No signs and/or symptoms were reported involving the gastrointestinal system. : No deficits noted. No signs and/or symptoms were reported regarding the genitourinary system. EENT: No deficits noted. No signs and/or symptoms were reported regarding the EENT system. Derm: No deficits noted. No signs and/or symptoms reported regarding the dermatologic system. Skin is intact, is healthy with good turgor, Skin is dry, Skin is normal. Musculoskeletal: No deficits noted. Circulation, motion, and sensation intact. Range of motion: intact in all extremities. 20:16 Reassessment: Grand daughter Maite [phone]. ke1 Vital Signs: 18:04 BP 161 / 92; Pulse 65; Resp 22; Temp 97.6(O); Pulse Ox 97% on R/A; Height 5 ft. 8 in. ld1 (172.72 cm); Pain 8/10; 19:00 BP 164 / 74; Pulse 70; Resp 18; Pulse Ox 100% on R/A; Weight 92.99 kg; ld1 19:35 BP 169 / 88; Pulse 82; Resp 17; Pulse Ox 99% on R/A; lg3 02 03:59 BP 143 / 89 Supine; Pulse 94; ke1 03:59 BP 137 / 105 Sitting; Pulse 101; ke1 04:00 BP 113 / 76 Standing; Pulse 124; ke1 0205 19:00 Body Mass Index 31.17 (92.99 kg, 172.72 cm) ld1 NIH Stroke Scale Scores: 10/14 18:10 NIHSS Score: 0 ld1 19:00 NIHSS Score: 0 ld1 19:36 NIHSS Score: 0 lg3 ED Course: 17:37 Patient arrived in ED. as 17:44 Erasmo Elaine MD is Attending Physician. kdr 17:49 Arm band placed on. Arm band placed on right wrist. EKG completed in triage. Results ld1 shown to MD. 17:55 CT Stroke Brain w/o Contrast In Process Unspecified. EDMS 18:03 Nancy Giordano, RN is Primary Nurse. ld1 18:03 SARS RAPID Sent. zm 18:03 Basic Metabolic Panel Sent. zm 18:03 CBC with Diff Sent. zm 18:03 Hepatic Function Sent. zm 18:03 High Sensitivity Troponin Sent. zm 18:03 Magnesium Sent. zm 18:03 Protime (+inr) Sent. zm 18:04 Ptt, Activated Sent. zm 18:04 Initial lab(s) drawn, by me, sent to lab. COVID swab sent to lab. Maintain EMS IV. zm Changed dressing on right antecubital. 18:04 Patient has correct armband on for positive identification. Placed in gown. Bed in low zm position. Call light in reach. Side rails up X 1. Warm blanket given. Pillow given. Client placed on continuous cardiac and pulse oximetry monitoring. NIBP monitoring applied. security monitor on. Pulse ox on. NIBP on. 18:08 Triage completed. ld1 18:10 No provider procedures requiring assistance completed. Maintain EMS IV. Dressing ld1 intact. Good blood return noted. Site clean \T\ dry. Gauge \T\ site: 20G RAC. Patient maintains SpO2 saturation greater than 95% on room air. 18:12 SARS RAPID Sent. ld1 18:13 Stroke CXR 1 View In Process Unspecified. EDMS 18:15 Irina Bishop MD is Hospitalizing Provider. kdr 19:36 Maintain EMS IV. Dressing intact. Good blood return noted. Site clean \T\ dry. Gauge \T\ lg 3 site: 20R AC. Flushed. 19:36 Family accompanied patient. lg3 20:55 Juan Carlos Boss MD is Hospitalizing Provider. la1 10/15 13:46 IV discontinued, intact. db Administered Medications: 10/14 19:35 Drug: Ativan (LORazepam) 1 mg Route: IVP; Site: right antecubital; lg3 19:35 Drug: fentaNYL (PF) 25 mcg Route: IVP; Site: right antecubital; lg3 19:35 Drug: Neurontin (gabapentin) 300 mg Route: PO; lg3 Medication: 18:10 VIS not applicable for this client. ld1 Point of Care Testing: Blood Glucose: 17:49 Blood Glucose: 97 mg/dL; ld1 Ranges: Output: 19:24 Urine: 300ml (Voided); Total: 300ml. ke1 Outcome: 18:17 Decision to Hospitalize by Provider. kdr 10/15 13:45 Admitted to db Condition: stable Instructed on the need for admit. 13:46 Patient left the ED. db NIH Stroke Scale - NIH Stroke Score Date: 10/14/2022 Time: 18:10 Total Score = 0 1a. Level of Consciousness (LOC) - 0(Alert) 1b. Level of Consciousness (LOC) (Month \T\ Age) - 0(Both) 1c. LOC Commands (Open \T\ Closes Eyes/Automotive Wholesale Parts Advisor) - 0(Both) 2. Best Gaze (Lateral Gaze Paresis) - 0(Normal) 3. Visual Field Loss - 0(No visual loss) 4. Facial Palsy - 0(Normal) 5a. Left Arm: Motor (10-second hold) - 0(No drift) 5b. Right Arm: Motor (10-second hold) - 0(No drift) 6a. Left Leg: Motor (5-second hold - always test supine) - 0(No drift) 6b. Right Leg: Motor (5-second hold - always test supine) - 0(No drift) 7. Limb Ataxia (finger/nose \T\ heel/al - test with eyes open) - 0(Absent) 8. Sensory Loss (pinprick arms/legs/face) - 0(Normal) 9. Best Language: Aphasia (description/naming/reading) - 0(No aphasia) 10. Dysarthria (speech clarity - read or repeat words) - 0(Normal) 11. Extinction and Inattention (visual/tactile/auditory/spatial/personal) - 0(No abnormality) Initials: ld1 NIH Stroke Scale - NIH Stroke Score Date: 10/14/2022 Time: 19:00 Total Score = 0 1a. Level of Consciousness (LOC) - 0(Alert) 1b. Level of Consciousness (LOC) (Month \T\ Age) - 0(Both) 1c. LOC Commands (Open \T\ Closes Eyes/Automotive Wholesale Parts Advisor) - 0(Both) 2. Best Gaze (Lateral Gaze Paresis) - 0(Normal) 3. Visual Field Loss - 0(No visual loss) 4. Facial Palsy - 0(Normal) 5a. Left Arm: Motor (10-second hold) - 0(No drift) 5b. Right Arm: Motor (10-second hold) - 0(No drift) 6a. Left Leg: Motor (5-second hold - always test supine) - 0(No drift) 6b. Right Leg: Motor (5-second hold - always test supine) - 0(No drift) 7. Limb Ataxia (finger/nose \T\ heel/al - test with eyes open) - 0(Absent) 8. Sensory Loss (pinprick arms/legs/face) - 0(Normal) 9. Best Language: Aphasia (description/naming/reading) - 0(No aphasia) 10. Dysarthria (speech clarity - read or repeat words) - 0(Normal) 11. Extinction and Inattention (visual/tactile/auditory/spatial/personal) - 0(No abnormality) Initials: ld1 NIH Stroke Scale - NIH Stroke Score Date: 10/14/2022 Time: 19:36 Total Score = 0 1a. Level of Consciousness (LOC) - 0(Alert) 1b. Level of Consciousness (LOC) (Month \T\ Age) - 0(Both) 1c. LOC Commands (Open \T\ Closes Eyes/Automotive Wholesale Parts Advisor) - 0(Both) 2. Best Gaze (Lateral Gaze Paresis) - 0(Normal) 3. Visual Field Loss - 0(No visual loss) 4. Facial Palsy - 0(Normal) 5a. Left Arm: Motor (10-second hold) - 0(No drift) 5b. Right Arm: Motor (10-second hold) - 0(No drift) 6a. Left Leg: Motor (5-second hold - always test supine) - 0(No drift) 6b. Right Leg: Motor (5-second hold - always test supine) - 0(No drift) 7. Limb Ataxia (finger/nose \T\ heel/al - test with eyes open) - 0(Absent) 8. Sensory Loss (pinprick arms/legs/face) - 0(Normal) 9. Best Language: Aphasia (description/naming/reading) - 0(No aphasia) 10. Dysarthria (speech clarity - read or repeat words) - 0(Normal) 11. Extinction and Inattention (visual/tactile/auditory/spatial/personal) - 0(No abnormality) Initials: lg3 Signatures: Dispatcher [employer] EDMS Erasmo Elaine MD MD kdr Martinez, Amelia as Attema, Lee, SOFTWARE INTEGRATION DEVELOPER-C SOFTWARE INTEGRATION DEVELOPER-Cla1 Edie Sherwood, RN RN lg3 Nancy Giordano RN JOSE gill1 Kristen Wells RN RN ke1 Martha Pedraza Danielle, RN RN db
[2022-10-14 18:21] LABS: SARS-CoV-2 Antigen Rapid Res Negative (Negative)
[2022-10-14 18:23] LABS: Protime INR 0.96
--- NOTE | 2022-10-14 18:31 | RAD REPORT ---
EXAM DESCRIPTION: Dee Single View10/14/2022 6:11 pm CLINICAL HISTORY: Code stroke COMPARISON: none FINDINGS: The lungs appear clear of acute infiltrate. The heart is normal size IMPRESSION: No acute abnormalities displayed
[2022-10-14 18:45] LABS: Albumin 3.6 g/dL (3.4-5.0); Bilirubin Direct 0.2 mg/dL (0-0.2); Bilirubin Total 0.9 mg/dL (0.2-1.0); Magnesium 2.4 mg/dL (1.6-2.4); Potassium 3.8 mmol/L (3.5-5.1); Protein, Total 6.8 g/dL (6.4-8.2); Troponin High Sensitivity 6.1 pg/mL (<58.9)
[2022-10-14] MEDS ORDERED: LORazepam 2 MG/ML VIAL ONE (19:29)
[2022-10-14] MEDS ORDERED: FENTANYL CITR 100 MCG/2 ML ONE (19:30)
[2022-10-14] MEDS ORDERED: GABAPENTIN 300 MG CAP ONE (19:30)
--- NOTE | 2022-10-14 21:00 | P.HP ---
Certification for Inpatient Patient admitted to: Observation With expected LOS: <2 Midnights Patient will require the following post-hospital care: None Practitioner: I am a practitioner with admitting privileges, knowledge of patient current condition, hospital course, and medical plan of care. Services: Services provided to patient in accordance with Admission requirements found in Title 42 Section 412.3 of the Code of Federal Regulations Patient History Date of Service: 10/14/22 Reason for admission: Syncope History of Present Illness: 77-year-old male with history of CAD, chronic pain/arthritis presents to the emergency department for near syncope. He reports he was sitting at a table when he became very dizzy, lightheaded and felt as if he was going to pass out, he denies loss of consciousness reports he remembers all events. He reports this episode of dizziness/lightheadedness lasted approximately 10 to 15 minutes. He denies any palpitations, shortness of breath or chest pain during this episode. Upon recovering he had no new neurological deficits. He was evaluated here in the emergency department and his labs were unremarkable. CT head negative, CXR was negative. Patient does report dizziness when changing positions for "a long time". Last stress test was approximately 5 years ago, he had a heart cath with 1 stent placement in 1995. We will admit for further evaluation and management of syncope. - Past Medical/Surgical History -: CAD -: None Psychosocial/ Personal History: Patient lives at home, alone. - Social History Smoking Status: Never smoker Alcohol use: No CD- Drugs: No Caffeine use: Yes Place of Residence: Home Review of Systems 10-point ROS is otherwise unremarkable Cardiovascular: Light Headedness, Other (Near syncope), As per HPI Physical Examination - Physical Exam General: Alert, In no apparent distress, Oriented x3 HEENT: Atraumatic, PERRLA, Mucous membr. moist/pink, EOMI, Sclerae nonicteric Neck: Supple, 2+ carotid pulse no bruit, No LAD, Without JVD or thyroid abnormality Respiratory: Clear to auscultation bilaterally, Normal air movement Cardiovascular: Regular rate/rhythm, Normal S1 S2 Gastrointestinal: Normal bowel sounds, No tenderness Musculoskeletal: No tenderness Integumentary: No rashes Neurological: Normal speech, Normal strength at 5/5 x4 extr, Normal tone, Normal affect - Studies Laboratory Data (last 24 hrs) 10/14/22 18:00: PT 10.6, INR 0.96, APTT 23.1 L 10/14/22 18:00: WBC 7.90, Hgb 14.3, Hct 41.4, Plt Count 154 10/14/22 18:00: Sodium 136, Potassium 3.8, BUN 14, Creatinine 1.15, Glucose 97, Magnesium 2.4, Total Bilirubin 0.9, AST 16, ALT 17, Alkaline Phosphatase 61 Assessment and Plan - Plan Assessment: Syncope History of CAD Plan: Syncope Initial troponin negative, will trend troponins, monitor on telemetry obtain echocardiogram, carotid Doppler. Patient without any neurological deficits, NIH is 0. We will add aspirin. Obtain orthostatic vital signs. History of CAD Heart cath 1995 with 1 stent placement, no stress test last 5 years or so. Patient denies any chest pain. Will trend troponins, monitor on telemetry, aspirin daily. DVT PPX: Lovenox Code status: Full Discharge Plan: Home Plan to discharge in: 24 Hours - Advance Directives Does patient have a Living Will: No Does patient have a Durable POA for Healthcare: No - Code Status/Comfort Care Code Status Assessed: Yes (Full code) Critical Care: No Time Spent Managing Pts Care (In Minutes): 55
[2022-10-14] MEDS ORDERED: ONDANSETRON 4 MG/2 ML VIAL IV PRN (21:19)
[2022-10-14] MEDS ORDERED: Ringers Lactate 1,000 ML IV SCH (21:19)
[2022-10-14] MEDS ORDERED: Ringers Lactate 1,000 ML IV ONE (22:28)
[2022-10-15 00:58] VITALS: BMI 31.1
[2022-10-15] MEDS: HYDROCODONE/APAP 5/325 MG TAB PO PRN ×2 (02:53→10:08)
[2022-10-15] MEDS ORDERED: HYDROCODONE/APAP 5/325 MG TAB ONE ×2 (02:55→09:47)
[2022-10-15] MEDS ORDERED: MORPHINE 2 MG/ML SYR IV ONE (03:47)
[2022-10-15] MEDS ORDERED: NA CHLORIDE 0.9% 500 ML ONE (04:06)
[2022-10-15] MEDS ORDERED: MORPHINE 2 MG/ML SYR ONE (04:06)
[2022-10-15] MEDS ORDERED: NA CHLORIDE 0.9% 500 ML IV ONE (04:12)
[2022-10-15 05:52] LABS: Potassium 3.2 mmol/L (3.5-5.1); Thyroid Stimulating Hormone 1.99 uIU/mL (0.358-3.740); Troponin High Sensitivity 20.6 pg/mL (<58.9)
[2022-10-15 07:29] LABS: Absolute Lymphocytes (CBC) 1.7 K/uL (0.7-4.9); Hematocrit 44.9 % (39.6-49.0); Lymphocytes % 28.3 % (15.3-44.8); MCV 95.2 fL (80-100); MPV 10.9 fL (7.6-11.3); RBC Red Blood Cell Count 4.71 M/uL (4.33-5.43)
[2022-10-15 07:45] VITALS: BP 167/83; TEMP 97.9
[2022-10-15] MEDS ORDERED: ENOXAPARIN 40 MG/0.4 ML SQ SCH (09:00)
[2022-10-15] MEDS ORDERED: ASPIRIN EC 81 MG TAB PO SCH (09:00)
--- NOTE | 2022-10-15 09:19 | RAD REPORT ---
EXAM DESCRIPTION: US - CP - 10/15/2022 2:04 am CLINICAL HISTORY: syncope Headache, drowsiness COMPARISON: No comparisons TECHNIQUE: Real-time sonographic evaluation of both carotid systems was performed. Doppler interroga tion was performed with waveform tracing bilaterally. FINDINGS: Normal high resistance waveforms are noted in both external carotid arteries. The common c arotid arteries and internal carotid arteries show normal low resistance waveforms. Mild soft plaque is seen proximal right ICA. Peak systolic and end diastolic velocity values and the ICA/CCA ratios are in the non-hemodynamically significant range. Antegrade flow seen in both vertebral arteries. IMPRESSION: Mild soft plaque is seen proximal right ICA. No evidence of a hemodynamically significant stenosis.
[2022-10-15] MEDS ORDERED: POTASSIUM 25 MEQ EFFERV TAB PO ONE (09:30)
[2022-10-15] MEDS ORDERED: POTASSIUM 25 MEQ EFFERV TAB ONE (09:47)
[2022-10-15] MEDS ORDERED: ENOXAPARIN 40 MG/0.4 ML SQ ONE (09:47)
[2022-10-15] MEDS ORDERED: ASPIRIN EC 81 MG TAB PO ONE (09:47)
[2022-10-15 13:56] VITALS: O2SAT 99
== END 2022-10-15 13:50 | disposition home or self-care (01) ==
LOC: ER 17:36 → ERHOLD 20:51
PROVIDERS: ADMIT Hospitalist; ATTEND Hospitalist
DX: R55 Syncope and collapse (principal); I25.10 Atherosclerotic heart disease of native coronary artery without angina pectoris; M19.90 Unspecified osteoarthritis, unspecified site; G89.29 Other chronic pain; Z95.5 Presence of coronary angioplasty implant and graft; Z20.822 Contact with and (suspected) exposure to COVID-19
CPT/HCPCS: 93005; 85025 ×2; 80048 ×2; 36415; 83735; 85610; 82947; 80076; 85730; 84443; 84484 ×3; 84439; 70450; 71045; 93880; 87811; J3010; J2270; J7120; J7040; G0480; G0378; J1650

== ENCOUNTER 2024-08-14 08:54 | Day surgery (SDC) | payer OTHER ==
[2024-08-11 12:13] LABS: Absolute Eosinophils 0.1 K/uL (0-0.5); Absolute Lymphocytes (CBC) 1.6 K/uL (0.7-4.9); Absolute Monocytes 0.7 K/uL (0.1-1.3); Absolute Neutrophil 3.1 K/uL (1.8-8.0); Basophils % 0.8 % (0-1.3); Eosinophils % 2.7 % (0-4.4); Hematocrit 42.8 % (39.6-49.0); Hemoglobin 14.5 g/dL (13.6-17.9); Lymphocytes % 28.4 % (15.3-44.8); MCH 32.2 pg (27.0-35.0); MCHC 33.9 g/dL (32.0-36.0); MCV 94.9 fL (80-100); MPV 10.2 fL (7.6-11.3); Monocytes % 12.4 % (3.3-12.3); Neutrophils % 55.7 % (41.7-73.7); Platelets 204 thou/uL (152-406); RBC Red Blood Cell Count 4.51 M/uL (4.33-5.43); Red Cell Distribution Width 12.4 % (12.1-15.2)
[2024-08-11 12:25] LABS: Anion Gap 7.2 mEq/L (5.0-15.0); Potassium 4.2 mEq/L (3.5-5.1)
[2024-08-14] MEDS: Ringers Lactate 1,000 ML IV ONE (09:20)
[2024-08-14] MEDS ORDERED: ONDANSETRON 4 MG/2 ML VIAL ONE (10:32)
[2024-08-14] MEDS ORDERED: propofoL 200 MG/20 ML VIAL IV ONE (10:32)
[2024-08-14] MEDS ORDERED: MIDAZOLAM HCL 2 MG/2 ML INJ ONE (10:32)
[2024-08-14] MEDS ORDERED: LIDOCAINE 2% MPF 5 ML VIAL ONE (10:32)
[2024-08-14] MEDS ORDERED: FENTANYL CITR 100 MCG/2 ML ONE (10:32)
[2024-08-14] MEDS: CEFAZOLIN SODIUM 2 GM/VIAL ONE (11:05)
[2024-08-14] MEDS ORDERED: EPHEDRINE SULF 50 MG/ML VIAL ONE (11:30)
[2024-08-14] MEDS: LIDOCAINE HCL/EPINEPHRINE 20 ML MDV ONE (11:37)
--- NOTE | 2024-08-14 12:55 | P.OP ---
Preoperative diagnosis: LEFT inguinal hernia Postoperative diagnosis: LEFT inguinal hernia Primary procedure: Open LEFT inguinal hernia repair with mesh Anesthesia: GETA + Local Estimated blood loss: <5cc Specimen: Hernia sack, hernia contents Findings: bladder in hernia, ext oblique thin, weak floor Complications: None Implants: Bard Perfix plug and patch - Large system used Transferred to: Recovery Room Condition: Good
[2024-08-14] MEDS: HYDROMORPHONE HCL 1 MG/ML INJ ONE (13:25)
[2024-08-14 13:31] VITALS: TEMP 97.1
[2024-08-14 15:20] VITALS: BP 159/85; O2SAT 99
--- NOTE | 2024-08-14 23:21 | OP ---
Date of Procedure: 08/14/2024 Surgeon: Rip Nunez MD, Preoperative Diagnosis: Left inguinal hernia. Postoperative Diagnosis: Left inguinal hernia. Procedure: Open left inguinal hernia repair with mesh. Anesthesia: General endotracheal plus local with 1% lidocaine with epinephrine. Estimated Blood Loss: 5 cc. Specimen: Hernia sac and hernia contents which were adipose tissue. Findings: Large hernia defect with intraabdominal adipose tissue contained within. In addition, mao dder had prolapsed into the hernia as well. There was a weak floor of the inguinal canal. The exter nal oblique aponeurosis was almost obliterated. It was thin and friable with the defect easily visua lized beneath. Complications: None. Implants: Bard PerFix large plug and patch hernia repair system utilized. Disposition: The patient was transferred to recovery room in good condition. Procedure In Detail: After informed consent was obtained, the patient was brought to the operating r oom, prepped and draped in the usual sterile fashion. After adequate anesthesia was achieved, I anes thetized an area in the left inguinal region down to subcutaneous tissues. A 15 blade was used to di ssect down through Camper's fat and Teetee's fascia to expose the external oblique aponeurosis and we re found to be quite thin and friable at this point. It was opened sharply at this point. I then op ened in its entirety exposing the hernia sac and contents of the spermatic cord which was dissected f ree from the hernia sac and ultimately encircled with a [place] drain. I then continued to dissect t he adipose tissue as well as the bladder off the hernia sac and contents. I then dissected free the hernia contents which were mostly adipose tissue. I ligated it with a 2-0 Vicryl suture and ligated this and sent off for pathologic examination. I then dissected the hernia sac free from the spermati c cord structures and removed partially and so this was sent off for pathologic examination. I then placed the preperitoneal fat back in the normal anatomic position. I sized the hernia defect which w as found to be quite large with paucity of strength in the floor of the inguinal canal as well. I ul timately placed a large Bard PerFix plug into the hernia defect and deployed it at this point and sec ured it circumferentially around using 2-0 PDS sutures in a circumferential fashion protecting the st ructures throughout. Ilioinguinal and iliohypogastric nerve were protected throughout the procedure as well. At this point, I deployed the Bard PerFix patch after sizing and trimming it appropriately to the pubic tubercle on medial aspect on the shelving edge of the internal oblique aponeurosis and t he undersurface of the inguinal ligament using interrupted 2-0 PDS sutures circumferentially around r econstituting the deep inguinal ring. At this point, the area was copiously irrigated and suctioned out completely dry. I then proceeded to close the external oblique aponeurosis which was quite thin, friable, and alveolar with a 3-0 Vicryl in a running fashion. However, there were defects in this a ppreciated through this area and it could not hold adequate tension in the area. As such, it was pushpa sed as well as it could be possible at this point. At this point, I closed the Camper's fat and Scar pa's fascia using the same set 3-0 Vicryl suture in interrupted fashion. Deep dermal planes were pushpa sed with the same set of 3-0 Vicryl suture in interrupted fashion. The skin was closed with a 4-0 Mo nocryl in a running fashion. Dermabond was placed over top. The patient tolerated the procedure wel l without incident or complication and transferred to PACU in good condition. All counts were correc t at the end of the case. MIRIAM/KIRK Voice ID: [id number] Report ID: [id number]
== END 2024-08-14 14:51 | disposition home or self-care (01) ==
LOC: OR 08:54
PROVIDERS: ATTEND Surgery
PROC: 0YU60JZ Supplement Left Inguinal Region with Synthetic Substitute, Open Approach (ICD-10-PCS; principal; 2024-08-14 10:30)
DX: K40.90 Unilateral inguinal hernia, without obstruction or gangrene, not specified as recurrent (principal)
CPT/HCPCS: 85025; 80048; 36415; 49505; J2704; J2003; J2250; J3010; J1171; J2405; J7120; 88302